=== PATIENT | male | born 2000 ===

== ENCOUNTER 2019-04-13 20:26 | Emergency (ER) | payer BC, OTHER ==
--- NOTE | 2019-04-13 20:31 | UC ---
Abdominal Pain Male HPI - HPI Summary HPI Summary: PERIUMBILICAL pain that started yesterday, intermittent and intense when it is here. At times he has to double over. does not take ibuprofen in excess, denies drug use. etoh intake: very little. denies n/v, rash, injury, change in stool. nothing makes it better/worse. Food is not helping or worsening. Of note he is currently being w/u for cardiac issues. - History of Current Complaint Chief Complaint: UCAbdominalPain Stated Complaint: ABD PAIN Time Seen by Provider: 04/13/19 20:31 Hx Obtained From: Patient Onset/Duration: Sudden Onset Pain Scale Used: 0-10 Numeric Location: Other - PERIUMBILICAL Radiates: No Character: Cramping Aggravating Factor(s): Nothing Alleviating Factor(s): Nothing Associated Signs And Symptoms: Positive: Negative - Allergies/Home Medications Allergies/Adverse Reactions: Allergies Allergy/AdvReac Type Severity Reaction Status Date / Time No Known Allergies Allergy Verified 04/13/19 20:38 Home Medications: Home Medications Ibuprofen 400 mg PO ONCE PRN 04/13/19 [History Confirmed 04/13/19] PMH/Surg Hx/FS Hx/Imm Hx Previously Healthy: Yes - Surgical History Surgical History: Unable to Obtain/Confirm - Family History Known Family History: Positive: Non-Contributory - Social History Substance Use Type: None Review of Systems All Other Systems Reviewed And Are Negative: Yes Constitutional: Negative: Fever, Chills, Fatigue Skin: Negative: Rash ENT: Negative: Sore Throat Respiratory: Negative: Shortness Of Breath Gastrointestinal: Positive: Abdominal Pain - periumbilical. Negative: Vomiting , Diarrhea, Nausea Genitourinary: Negative: Dysuria, Vaginal/Penile Discharge Musculoskeletal: Negative: Arthralgia, Myalgia Neurological: Negative: Headache Physical Exam Triage Information Reviewed: Yes Appearance: Well-Appearing Vital Signs Reviewed: Yes Neck: Positive: Supple Respiratory Exam: Normal Cardiovascular Exam: Normal Abdomen Description: Positive: No Organomegaly, Soft. Negative: CVA Tenderness (R), CVA Tenderness (L), Distended, Guarding, Peritoneal Signs, Pulsatile Mass, Splenomegaly Bowel Sounds: Positive: Present Neurological: Positive: Alert Skin: Negative: Rashes Abd Pain Male Course/Dx - Course Course Of Treatment: Intermittent Periumbilical pain for approxl 24hrs. Not assoc. w/ etoh or drugs or nsaids. No GI symptoms and on exam it is unremarkable. He reports not having pain during the visit. vitals good. UNCLEAR etiology but I explained should anything change like worsening of symptoms or new symptoms he should go to ED for access to Scan. No acute abdomen at this point and offered sending him to ED now but he prefers to wait. - Differential Dx/Clinical Impression Differential Diagnosis/HQI/PQRI: Appendicitis, Urinary Tract Infection, Other Provider Diagnosis: Periumbilical abdominal cramping Discharge ED - Sign-Out/Discharge Documenting (check all that apply): Patient Departure All imaging exams completed and their final reports reviewed: No Studies - Discharge Plan Condition: Good Disposition: HOME Patient Education Materials: Acute Abdominal Pain (DC) Referrals: Elba Law MD [Primary Care Provider] - Additional Instructions: If there are any changes please go to the Emergency Room. - Billing Disposition and Condition Condition: GOOD Disposition: Home
[2019-04-13 20:38] VITALS: BP 138/91
== END 2019-04-13 21:06 | disposition home or self-care (01) ==
LOC: UCEAST 20:26
DX: R10.33 Periumbilical pain (principal)
CPT/HCPCS: 99201; G0463

== ENCOUNTER 2019-04-13 23:35 | Emergency (ER) | payer OTHER ==
--- NOTE | 2019-04-13 23:54 | ED ---
Abdominal Pain/Male - HPI Summary HPI Summary: Patient is a 19 y/o M presenting to [facility] with complaints of periumbilical pain. Pain is characterized as a cramping sensation. 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 After work, he went home, ate minimal food, went to sleep. He states that he had difficult sleeping due to pain. Today, 04/13/19, the patient states that the pain had completely resolved for a few hours midday. However, the pain returned and he has been experiencing the pain intermittently since. He states that the pain has been present at the same spot since onset. On triage, pain is rated 7/10. Nausea, changes in urination and bowel movements, testicular pain are denied. He went to [facility] around 2030, 04/13/19. Patient states that the pain had been completely resolved when he left . However, pain has since returned. No abdominal surgeries noted. He denies PMHx. No daily medications noted. Home medications and allergies are reviewed. - History of Current Complaint Chief Complaint: EDAbdPain Stated Complaint: ABD PAIN PER PT Time Seen by Provider: 04/13/19 23:47 Hx Obtained From: Patient Onset/Duration: Lasting Days, Still Present Timing: Intermittent, Lasting Days Severity Currently: Severe Pain Intensity: 7 Pain Scale Used: 0-10 Numeric Location: Umbilical Character: Cramping Associated Signs And Symptoms: Positive: Decreased Appetite, Other - negative - changes in urination and bowel movements, testicular pain. Negative: Nausea - Allergies/Home Medications Allergies/Adverse Reactions: Allergies Allergy/AdvReac Type Severity Reaction Status Date / Time No Known Allergies Allergy Verified 04/13/19 23:38 PMH/Surg Hx/FS Hx/Imm Hx Endocrine/Hematology History: Denies: Hx Diabetes Cardiovascular History: Denies: Hx Hypertension Sensory History: Denies: Hx Legally Blind, Hx Deafness Opthamlomology History: Denies: Hx Legally Blind EENT History: Denies: Hx Deafness Infectious Disease History: No Infectious Disease History: Denies: Traveled Outside the [place] in Last 30 Days - Family History Known Family History: Negative: Cardiac Disease, Hypertension, Diabetes - Social History Alcohol Use: Occasionally Substance Use Type: Reports: None Smoking Status (MU): Never Smoked Tobacco Review of Systems Gastrointestinal: Other - positive - decreased appetite; negative - changes in urination and bowel movements Positive: Abdominal Pain. Negative: Nausea Negative: pain - testicular All Other Systems Reviewed And Are Negative: Yes Physical Exam - Summary Physical Exam Summary: Appearance: Well-appearing, Well-nourished, lying in bed comfortably Skin: Warm, dry, no obvious rash Eyes: sclera anicteric, no conjunctival pallor ENT: mucous membranes moist, pharynx appears normal Neck: Supple, nontender Respiratory: Clear to auscultation, no signs of respiratory distress Cardiovascular: Normal S1, S2. No murmurs. Normal distal pulses in tibial and radial bilaterally. Abdomen: Soft, mild periumbilical tenderness with no guarding and rebound, normal active bowel sounds present Musculoskeletal: Normal, Strength/ROM Intact Neurological: A&Ox3, awake and alert, mentation is normal, speech is fluent and appropriate Psychiatric: affect is normal, does not appear anxious or depressed Triage Information Reviewed: Yes Vital Signs On Initial Exam: Initial Vitals Temp Pulse Resp BP Pulse Ox 98.2 F 56 15 149/77 100 04/13/19 23:37 04/13/19 23:37 04/13/19 23:37 04/13/19 23:37 04/13/19 23:37 Vital Signs Reviewed: Yes Procedures - Sedation Patient Received Moderate/Deep Sedation with Procedure: No Diagnostics - Vital Signs Vital Signs Temp Pulse Resp BP Pulse Ox 04/13/19 23:37 98.2 F 56 15 149/77 100 - Laboratory Result Diagrams: 04/14/19 00:24 04/14/19 00:24 Lab Statement: Any lab studies that have been ordered have been reviewed, and results considered in the medical decision making process. - CT CT ABD/PEL CT Interpretation Completed By: Radiologist Summary of CT Findings: IMPRESSION: 1. Trace pericholecystic fluid or edema along the liver interface. No. gallstones by CT. 2. Otherwise negative CT abdomen/pelvis. No renal or ureteral calculi are. evident and there is no evidence of obstructive uropathy. THIS REPORT WAS REVIEWED BY DR. CULLEN. Re-Evaluation - Re-Evaluation First Eval Re-Evaluation Time: 04:09 Comment: Results of workup were discussed with the patient. He was discharged to home with Protonix prescription and PCP followup. Abdominal Pain Male Course/Dx - Course Course Of Treatment: Patient is a 19 y/o M presenting to [facility] with complaints of periumbilical pain. Pain is characterized as a cramping sensation. 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 After work, he went home, ate minimal food, went to sleep. He states that he had difficult sleeping due to pain. Today, 04/13/19, the patient states that the pain had completely resolved for a few hours midday. However, the pain returned and he has been experiencing the pain intermittently since. He states that the pain has been present at the same spot since onset. On triage, pain is rated 7/ 10. Nausea, changes in urination and bowel movements, testicular pain are denied. He went to [facility] around 2029, 04/13/19. Patient states that the pain had been completely resolved when he left . However, pain has since returned. No abdominal surgeries noted. He denies PMHx. No daily medications noted. Abdomen: Soft, mild periumbilical tenderness with no guarding and rebound, normal active bowel sounds present. Bloodwork was within normal limits. UA showed 1+ blood and 2+ RBC. During ED course, patient received fluids. CT ABD/ PEL IMPRESSION: 1. Trace pericholecystic fluid or edema along the liver interface. No. gallstones by CT. 2. Otherwise negative CT abdomen/pelvis. No renal or ureteral calculi are. evident and there is no evidence of obstructive uropathy. Results of workup were discussed with the patient. He was discharged to home with Protonix prescription and PCP followup. - Diagnoses Provider Diagnoses: Abdominal pain Discharge ED - Sign-Out/Discharge Documenting (check all that apply): Patient Departure - discharge - Discharge Plan Condition: Stable Disposition: HOME Prescriptions: Pantoprazole TAB * [Protonix TAB*] 40 mg PO DAILY #15 tab Patient Education Materials: Acute Abdominal Pain (ED) Referrals: Elba Law MD [Primary Care Provider] - 2 Days (if not improving) Additional Instructions: The lab work and CT scan that we did tonight did not show any significant abnormality other than a small amount of blood in the urine. I am recommending a trial on an acid blocking medicine in case the pain is coming from stomach irritation. You can stop this after a week if there is no improvement. - Attestation Statements Document Initiated by Scribe: Yes Documenting Scribe: IESHA CAPONE Provider For Whom Robertibe is Documenting (Include Credential): NICKI CULLEN MD Scribe Attestation: I, IESHA CAPONE, scribed for NICKI CULLEN MD on 04/14/19 at 0411. Status of Scribe Document: Ready
[2019-04-14] MEDS ORDERED: NS 0.9% 1000 ML** 1,000 ML IV ONE
[2019-04-14 00:25] LABS: Urine Appearance Clear; Urine Bilirubin Negative (Negative); Urine Blood 1+ (Negative); Urine Color Yellow; Urine Glucose Negative (Negative); Urine Ketones Negative (Negative); Urine Nitrite Negative (Negative); Urine Protein Negative (Negative); Urine Specific Gravity 1.014 (1.010-1.030); Urine Urobilinogen Negative (Negative)
[2019-04-14 00:33] LABS: ABS Eosinophils 0.1 10^3/ul (0-0.6); ABS Lymphocytes 1.5 10^3/ul (1.0-4.8); ABS Monocytes 0.5 10^3/ul (0-0.8); ABS Neutrophils 4.7 10^3/ul (1.5-7.7); Hematocrit 43 % (42-52); Hemoglobin 14.5 g/dL (14.0-18.0); Lymphocyte % 22.5 %; Mean Corpuscular HGB Conc 34 g/dL (31-36); Mean Corpuscular Hemoglobin 27 pg (27-31); Mean Corpuscular Volume 80 fL (80-94); Nucleated Red Blood Cells % 0.1; Platelet Count 171 10^3/uL (150-450); Red Blood Count 5.37 10^6 /uL (4.18-5.48); Red Cell Distribution Width 13 % (10-15); White Blood Count 6.9 10^3/uL (3.5-10.8)
[2019-04-14 00:34] LABS: Urine Bacteria Absent (Absent); Urine Red Blood Cell 2+(6-10/hpf) (Absent); Urine White Blood Cell Absent (Absent)
[2019-04-14 00:51] LABS: ALT 14 U/L (7-52); AST 19 U/L (13-39); Albumin 4.6 g/dL (3.2-5.2); Albumin/Globulin Ratio 1.9 (1-3); Alkaline Phosphatase 46 U/L (34-104); Anion Gap 7 mmol/L (2-11); BUN/Creatinine Ratio 18.4 (8-20); Blood Urea Nitrogen 19 mg/dL (6-24); C Reactive Protein < 1.00 mg/L (<8.01); CO2 Carbon Dioxide 28 mmol/L (22-32); Calcium 9.7 mg/dL (8.6-10.3); Chloride 104 mmol/L (101-111); EGFR African American 111.4 (>60); EGFR Non-African American 92.1 (>60); Globulin 2.4 g/dL (2-4); Glucose 99 mg/dL (70-100); Potassium 4.3 mmol/L (3.5-5.0); Sodium 139 mmol/L (135-145)
[2019-04-14] MEDS ORDERED: Iohexol 300* (CONTRAST) 10 ML SDV IV ONE (01:59)
[2019-04-14 04:16] VITALS: BP 122/66
== END 2019-04-14 04:16 | disposition home or self-care (01) ==
LOC: ED 23:35
DX: R10.33 Periumbilical pain (principal)
CPT/HCPCS: 36415; 74177; 80053; 81003; 81015; 83690; 85025; 86140; 96360; 99283; Q9967